=== PATIENT | female | born 1940 | race Caucasian/White ===

== ENCOUNTER 2018-05-27 11:04 | Outpatient (CLI) | payer MEDICARE, BC | END 2018-05-27 11:05 | disposition home or self-care (01) | DRG 558 | LOC: CONVCARE 11:04 | PROVIDERS: ATTEND Orthopaedic Surgery | DX: M75.42 Impingement syndrome of left shoulder (principal) | CPT/HCPCS: 73030 ==

== ENCOUNTER 2018-05-29 07:15 | Day surgery (SDC) | payer MEDICARE, BC ==
[2018-05-29] MEDS ORDERED: PROPOFOL 500 MG/50 ML EMU IV ONE (07:55)
[2018-05-29 09:28] VITALS: PULSE 54; RESP 20; TEMP 96.9
[2018-05-29 09:40] VITALS: BP 176/88; O2SAT 96
== END 2018-05-29 09:50 | disposition home or self-care (01) | DRG 951 ==
LOC: SURG 07:15
PROVIDERS: ATTEND Surgery
DX: Z12.11 Encounter for screening for malignant neoplasm of colon (principal); K57.32 Diverticulitis of large intestine without perforation or abscess without bleeding; R19.7 Diarrhea, unspecified; D12.0 Benign neoplasm of cecum
CPT/HCPCS: J2704